=== PATIENT | female | born 1975 | race Caucasian/White ===

== ENCOUNTER → 2016-12-13 | Outpatient (CLI) | payer BC ==
[2016-12-13 19:11] LABS: ALBUMIN 3.9 GM/DL (3.2-5.2); ALKALINE PHOSPHATASE 83 U/L (45-117); ALT/SGPT 20 U/L (12-78); ANION GAP 6 MEQ/L (8-16); AST/SGOT 15 U/L (15-37); BILIRUBIN,TOTAL 0.5 MG/DL (0.2-1.0); BLOOD UREA NITROGEN 14 MG/DL (7-18); CALCIUM LEVEL 9.5 MG/DL (8.5-10.1); CARBON DIOXIDE LEVEL 30 MEQ/L (21-32); CHLORIDE LEVEL 107 MEQ/L (98-107); CHOLESTEROL LEVEL 183 MG/DL (<200); CREATININE FOR GFR 0.77 MG/DL (0.55-1.02); FREE T4 0.93 NG/DL (0.76-1.46); GLOMERULAR FILTRATION RATE > 60.0 (>58); GLUCOSE, FASTING 94 MG/DL (70-105); POTASSIUM SERUM 4.3 MEQ/L (3.5-5.1); SODIUM LEVEL 143 MEQ/L (136-145); TOTAL PROTEIN 6.5 GM/DL (6.4-8.2); TRIGLYCERIDES LEVEL 41 MG/DL (<150)
[2016-12-13 19:20] LABS: BASO % 0.6 % (0.0-1.0); EOS # 0.3 K/mm3 (0.0-0.50); EOS % 4.5 % (0.0-3.0); LARGE UNSTAINED CELL # 0.1 K/mm3 (0.0-0.4); LARGE UNSTAINED CELL % 1.3 % (0.0-4.0); LYMPH # 2.4 K/mm3 (1.5-4.5); LYMPH % 32.2 % (24.0-44.0); MEAN CORPUSCULAR HEMOGLOBIN 31.5 pg (27.0-33.0); MEAN CORPUSCULAR HGB CONC 34.1 g/dl (32.0-36.5); MEAN CORPUSCULAR VOLUME 92.2 fl (80.0-96.0); MONO # 0.4 K/mm3 (0.0-0.8); NEUTROPHILS # 4.1 K/mm3 (1.8-7.7); NEUTROPHILS % 56.3 % (36.0-66.0); PLATELET COUNT, AUTOMATED 316 k/mm3 (150-450); RED CELL DISTRIBUTION WIDTH 11.9 % (11.5-14.5); WHITE BLOOD COUNT 7.2 K/mm3 (4.0-10.0)
== END ==
LOC: M WUC 09:14 → M LRY 09:14
PROVIDERS: ATTEND Emergency Medicine
DX: Z00.00 Encounter for general adult medical examination without abnormal findings (principal); E66.3 Overweight

== ENCOUNTER → 2019-11-29 | Outpatient (REF) | payer OTHER ==
[2019-11-29 13:54] LABS: C REACTIVE PROTEIN QUANTITATIV 0.34 MG/DL (0.00-0.30); RHEUMATOID FACTOR QUANT < 10.0 IU/ML (<15.0)
[2019-11-29 13:59] LABS: VITAMIN B12 LEVEL 612 PG/ML (247-911)
== END ==
LOC: M LAB REF 12:27
PROVIDERS: ATTEND Nurse Practitioner Adult Health
DX: R20.8 Other disturbances of skin sensation (principal); M25.50 Pain in unspecified joint; Z82.61 Family history of arthritis

== ENCOUNTER → 2020-04-04 | Outpatient (CLI) | payer OTHER | LOC: M LABSMTC 13:46 | PROVIDERS: ATTEND Pediatrics | DX: Z11.59 Encounter for screening for other viral diseases (principal) ==

== ENCOUNTER → 2024-01-18 | Outpatient (CLI) | payer OTHER | LOC: M WHC 13:04 | PROVIDERS: ATTEND Obstetrics & Gynecology | DX: Z12.4 Encounter for screening for malignant neoplasm of cervix (principal); N92.4 Excessive bleeding in the premenopausal period; Z53.9 Procedure and treatment not carried out, unspecified reason ==

== ENCOUNTER → 2024-01-18 | Outpatient (REF) | payer OTHER | LOC: M SFHCWAGY 17:57 | PROVIDERS: ATTEND Obstetrics & Gynecology | DX: Z12.4 Encounter for screening for malignant neoplasm of cervix (principal) ==

== ENCOUNTER → 2024-02-16 | Outpatient (CLI) | payer OTHER | LOC: M WHC 07:59 | PROVIDERS: ATTEND Obstetrics & Gynecology | DX: Z12.31 Encounter for screening mammogram for malignant neoplasm of breast (principal); N92.4 Excessive bleeding in the premenopausal period ==

== ENCOUNTER 2024-06-28 06:14 | Day surgery (SDC) | payer OTHER ==
[~2024-06-28] VITALS: Ht 175.3 cm; Wt 94.8 kg
[~2024-06-28 06:14] MED LIST: ASCO500C3 PO; BIOT1CAP2 PO; CALC500C16 PO; MULTTAB61 PO
[2024-06-28] MEDS ORDERED: LIDOCAINE 1% SDV 5ML VIAL SC PRN (06:30)
[2024-06-28] MEDS ORDERED: LR 1,000 ML IV SCH ×2 (06:30→08:30)
[2024-06-28] MEDS ORDERED: PHEN15CA6 PO (06:36)
[2024-06-28 06:58] LABS: HEMATOCRIT 39.6 % (36.0-47.0); HEMOGLOBIN 13.5 g/dl (12.0-15.5); MEAN CORPUSCULAR HEMOGLOBIN 31.4 pg (27.0-33.0); MEAN CORPUSCULAR HGB CONC 34.1 g/dl (32.0-36.5); MEAN CORPUSCULAR VOLUME 92.1 fl (80.0-96.0); PLATELET COUNT, AUTOMATED 317 10^3/uL (150-450); WHITE BLOOD COUNT 10.5 10^3/uL (4.0-10.0)
[2024-06-28] MEDS ORDERED: propofoL 200 MG/20 ML VIAL As Ordered ONE (07:22)
[2024-06-28] MEDS ORDERED: ONDANSETRON 4MG 2ML VIAL As Ordered ONE (07:22)
[2024-06-28] MEDS ORDERED: LIDOCAINE 2% 100MG/5ML SDV (FOR ANES.) As Ordered ONE (07:22)
[2024-06-28] MEDS ORDERED: KETOROLAC 60MG 2ML VIAL As Ordered ONE (07:22)
[2024-06-28] MEDS ORDERED: MIDAZOLAM INJ 2MG/2ML VIAL As Ordered ONE (07:23)
[2024-06-28] MEDS ORDERED: fentaNYL 100 MCG/2 ML INJECTION As Ordered ONE (07:23)
[2024-06-28] MEDS ORDERED: LEVONORGESTREL 52MG (MIRENA) IUD As Ordered ONE (07:37)
[2024-06-28] MEDS ORDERED: dexmedeTOMIDine (4MCG/ML)200MCG/50ML BTL (PRECEDEX) As Ordered ONE (07:39)
[2024-06-28] MEDS ORDERED: ACETAMINOPHEN 1000MG 100ML IV BAG As Ordered ONE (08:00)
[2024-06-28] MEDS: SILVER NITRATE APPLICATOR (1 = QTY 10) As Ordered ONE (08:29)
[2024-06-28] MEDS ORDERED: HYDROMORPHONE HCL 0.5 MG/ 0.5 ML SYRINGE IV PRN (08:30)
[2024-06-28] MEDS ORDERED: oxyCODONE 5MG TAB PO PRN (08:30)
[2024-06-28] MEDS ORDERED: fentaNYL 100 MCG/2 ML INJECTION IV PRN (08:30)
[2024-06-28] MEDS ORDERED: ONDANSETRON 4MG 2ML VIAL IV PRN (08:30)
[2024-06-28 09:20] VITALS: BP 152/86; TEMP 97; O2SAT 98
== END 2024-06-28 09:48 | disposition home or self-care (01) ==
LOC: M SDC 06:14
PROVIDERS: ATTEND Obstetrics & Gynecology
DX: N93.9 Abnormal uterine and vaginal bleeding, unspecified (principal); F17.210 Nicotine dependence, cigarettes, uncomplicated; Z79.899 Other long term (current) drug therapy; Z98.51 Tubal ligation status
CPT/HCPCS: 36415; 58300; 58558; 81025; 85027; 86850; 86900; 86901; 88305; J0131; J0665; J1100; J1885; J2250; J2405; J3010; J7298